=== PATIENT | female | born 1960 | race Two or more races ===

== ENCOUNTER 2025-02-25 12:10 | Inpatient (IN) | payer OTHER ==
[~2025-02-25] VITALS: Ht 165.1 cm; Wt 99.8 kg
[2025-02-25] MEDS ORDERED: DILAUDID8 MG (12:43)
[2025-02-25] MEDS ORDERED: PANTOPRAZO40 MG/50 M (12:44)
[2025-02-25] MEDS ORDERED: ROSUVASTATIN CA20 MG (12:45)
[2025-02-25] MEDS ORDERED: VRAYLAR3 MG (12:45)
[2025-02-25] MEDS ORDERED: MIRTAZAPINE30 M1 (12:45)
--- NOTE | 2025-02-25 12:47 | NUR ---
PACIENTE ALERTA Y ORIETADA X3 LA MISMA CON DOLOR ABDOMINAL, DIARREAS 13 Y NAUSIAS . S/V ESTABLE AL MOMENTO . PACIENTE EN VALENTIN CON BARANDAS ELEVADAS EN ESPERA DE EVALUACION MEDICA.
[2025-02-25] MEDS ORDERED: MORPHINE SULFATE 4 MG/ML VIAL IV ONE (13:45)
[2025-02-25] MEDS ORDERED: FAMOtidine 10 MG/ML (4ML VIAL) IV ONE (13:45)
[2025-02-25] MEDS ORDERED: 0.9 % SODIUM CHLORIDE 1,000 ML IV ONE (13:45)
[2025-02-25] MEDS ORDERED: FAMOTIDINE/PF 20 MG/2 ML VIAL ONE (13:47)
--- NOTE | 2025-02-25 13:55 | NUR ---
PACIENTE ORIENTADA POR RN RODRIGUES SOBRE TRATAMIENTO MEDICO EL CUAL INDICO ENTENDER. SE REALIZO EXTRACCION DE MUESTRAS Y CANALIZACION BAJO MEDIDAS ASEPTICAS. SE ADMINISTRAN MEDICAMENTO VITALY ORDEN MEDICA. PACIENTE PENDIENTE A ENTREGAR U/A Y CT ABDOMINO & PELVICO.
[2025-02-25] MEDS ORDERED: ONDANSETRON HCL 2 MG/ML VIAL IV ONE (14:00)
[2025-02-25 14:25] LABS: BASO % 0.2 % (0.1-1.2); EOS # 0.01 (0.04-0.54); EOS % 0.1 % (0.7-7.0); LYMPH # 1.24 (1.18-3.74); LYMPH % 10.2 % (19.3-53.1); MEAN PLATELET VOLUME 10.70 fl (9.4-12.4); MONO # 0.73 (0.24-0.82); MONO % 6.0 % (4.7-12.5); NEUT # 10.09 (1.56-6.13); NEUT % 83.1 % (34.0-71.1); RED CELL DISTRIBUTION WIDTH 13.5 % (11.6-14.4)
[2025-02-25 14:40] LABS: ALT/SGPT 24.0 U/L (12-78); AST/SGOT 14.0 U/L (15-37); BILIRUBIN TOTAL 0.72 mg/dL (0.3-1.2); BUN CREA RATIO 13.0 (7.0-25.0); CREATININE SERUM 0.61 mg/dL (0.55-1.02); GFR 99.06; GLOBULINA 4.2 G/DL (2.4-3.5); GLUCOSE FASTING 123.0 mg/dL (65-100); INR 1.04; OSMOLALITY SERUM 285.0 MOSM/KG (275-295)
[2025-02-25] MEDS ORDERED: KETOROLAC TROMETHAMINE 30 MG VIAL IV ONE ×2 (15:30→18:45)
[2025-02-25] MEDS ORDERED: KETOROLAC TROMETHAMINE 30 MG VIAL ONE ×2 (15:45→19:04)
[2025-02-25] MEDS ORDERED: CIPROFLOXACIN IN 5 % DEXTROSE 400 MG/200 ML PIGGYBAG IV ONE (15:45)
[2025-02-25] MEDS ORDERED: FAMOTIDINE/PF 20 MG in 0.9 % SODIUM CHLORIDE 8 ML IV PUSH SCH (21:44)
[2025-02-25] MEDS ORDERED: CIPROFLOXACIN IN 5 % DEXTROSE 200 ML IV SCH (21:44)
[2025-02-25] MEDS ORDERED: ACETAMINOPHEN 500 MG GEL..CAP PO PRN (21:45)
[2025-02-25] MEDS ORDERED: ONDANSETRON HCL 4 MG in 0.9 % SODIUM CHLORIDE 50 ML IV PRN (21:45)
[2025-02-25] MEDS ORDERED: MORPHINE SULFATE 4 MG/ML CARTRIDGE IV ONE (21:45)
[2025-02-25] MEDS ORDERED: MORPHINE SULFATE 4 MG/ML CARTRIDGE IV PRN (21:45)
[2025-02-25] MEDS ORDERED: 0.9 % SODIUM CHLORIDE 1,000 ML IV SCH (21:45)
[2025-02-26 02:20] LABS: URINE APPEARANCE Clear; URINE BILIRRUBIN Negative (NEGATIVE); URINE BLOOD Negative; URINE COLOR Yellow; URINE GLUCOSE Negative (NEGATIVE); URINE KETONE Negative (NEGATIVE); URINE LEUKOCYTE Negative; URINE NITRATE Negative; URINE PROTEIN 30 (NEGATIVE); URINE UROBILINOGEN 0.2 E.U./dl
[2025-02-26 02:21] LABS: URINE BACTERIA 1760.4 uL (0.0-1933); URINE EPITHELIAL CELLS 64.4 uL (0.0-38.8); URINE RBC 10.4 uL (0.0-20.8); URINE WBC 6.4 uL (0.0-23.2)
[2025-02-26 02:46] LABS: INR 1.05
[2025-02-26 03:18] LABS: TYPE CELLS SQUAMOUS; URINE CAST 0.00 uL (0.0-1.40)
[2025-02-26 03:33] VITALS: BP 110/65; O2SAT 95
[2025-02-26 08:00] VITALS: BP 135/78; O2SAT 96
[2025-02-26] MEDS ORDERED: ENOXAPARIN SODIUM 40 MG/0.4 ML SYRINGE SUBCUTANEO SCH (09:00)
[2025-02-26] MEDS ORDERED: KETOROLAC TROMETHAMINE 30 MG VIAL IV PRN (12:15)
[2025-02-26 16:14] VITALS: BP 132/73; O2SAT 96
[2025-02-27] VITALS: BP 109/70; O2SAT 98
[2025-02-27 08:00] VITALS: BP 157/89; O2SAT 96
[2025-02-27] MEDS ORDERED: METHADONE HCL10 MG (12:42)
[2025-02-27 13:31] LABS: BASO % 0.3 % (0.1-1.2); EOS # 0.19 (0.04-0.54); EOS % 1.8 % (0.7-7.0); LYMPH # 2.27 (1.18-3.74); LYMPH % 21.5 % (19.3-53.1); MEAN PLATELET VOLUME 11.70 fl (9.4-12.4); MONO # 0.79 (0.24-0.82); MONO % 7.5 % (4.7-12.5); NEUT # 7.22 (1.56-6.13); NEUT % 68.4 % (34.0-71.1); RED CELL DISTRIBUTION WIDTH 13.3 % (11.6-14.4)
[2025-02-27 14:10] LABS: ALT/SGPT 20.0 U/L (12-78); AST/SGOT 12.0 U/L (15-37); BILIRUBIN TOTAL 0.41 mg/dL (0.3-1.2); BUN CREA RATIO 10.0 (7.0-25.0); CREATININE SERUM 0.8 mg/dL (0.55-1.02); GFR 72.44; GLOBULINA 3.3 G/DL (2.4-3.5); GLUCOSE FASTING 160.0 mg/dL (65-100); OSMOLALITY SERUM 292.0 MOSM/KG (275-295)
[2025-02-27 16:00] VITALS: BP 158/80; O2SAT 99
[2025-02-27] MEDS ORDERED: LACTOBACILLUS ACIDOPHILUS 1 CAP CAP PO SCH (17:00)
[2025-02-27 23:50] VITALS: BP 160/80; O2SAT 98
[2025-02-28] MEDS ORDERED: MORPHINE SULFATE 4 MG/ML CARTRIDGE IV PRN ×3 (03:45→22:03)
[2025-02-28 08:00] VITALS: BP 152/88; O2SAT 96
[2025-02-28] MEDS ORDERED: OxyCODONE HCL ER 10MG TAB (OxyCONTIN) PO SCH (10:00)
[2025-02-28] MEDS ORDERED: MORPHINE SULFATE 2 MG/ML CARTRIDGE IV ONE (10:00)
[2025-02-28 16:14] VITALS: BP 143/73; O2SAT 97
[2025-02-28] MEDS ORDERED: MORPHINE SULFATE 4 MG/ML CARTRIDGE IV ONE (22:15)
[2025-03-01 01:17] VITALS: BP 156/78; O2SAT 97
[2025-03-01 05:14] VITALS: BP 140/80; O2SAT 98
[2025-03-01 11:18] VITALS: BP 155/56; O2SAT 98
[2025-03-01] MEDS ORDERED: DIATRIZOATE MEGLUMINE, SODIUM 30 ML BOTTLE PO NR (12:00)
[2025-03-01 13:28] LABS: ALT/SGPT 28.0 U/L (12-78); AST/SGOT 33.0 U/L (15-37); BILIRUBIN TOTAL 0.51 mg/dL (0.3-1.2); BUN CREA RATIO 11.0 (7.0-25.0); CREATININE SERUM 0.61 mg/dL (0.55-1.02); GFR 99.06; GLOBULINA 3.8 G/DL (2.4-3.5); GLUCOSE FASTING 107.0 mg/dL (65-100); OSMOLALITY SERUM 289.0 MOSM/KG (275-295)
[2025-03-01] MEDS ORDERED: DEXTROSE 5 % IN WATER 1,000 ML IV SCH (23:45)
[2025-03-02 00:55] VITALS: BP 156/74; O2SAT 97
[2025-03-02 07:04] LABS: BASO % 0.5 % (0.1-1.2); EOS # 0.31 (0.04-0.54); EOS % 3.0 % (0.7-7.0); LYMPH # 1.76 (1.18-3.74); LYMPH % 16.8 % (19.3-53.1); MEAN PLATELET VOLUME 11.60 fl (9.4-12.4); MONO # 0.86 (0.24-0.82); MONO % 8.2 % (4.7-12.5); NEUT # 7.49 (1.56-6.13); NEUT % 71.3 % (34.0-71.1); RED CELL DISTRIBUTION WIDTH 12.9 % (11.6-14.4)
[2025-03-02 07:42] LABS: ALT/SGPT 40.0 U/L (12-78); AST/SGOT 32.0 U/L (15-37); BILIRUBIN TOTAL 0.55 mg/dL (0.3-1.2); BUN CREA RATIO 10.0 (7.0-25.0); CREATININE SERUM 0.59 mg/dL (0.55-1.02); GFR 102.94; GLOBULINA 3.3 G/DL (2.4-3.5); GLUCOSE FASTING 129.0 mg/dL (65-100); OSMOLALITY SERUM 288.0 MOSM/KG (275-295)
[2025-03-02 08:00] VITALS: BP 147/92; O2SAT 96
[2025-03-02] MEDS ORDERED: POTASSIUM BICARBONATE/CIT AC 25 MEQ TABLET.EFF PO SCH (11:00)
[2025-03-02] MEDS ORDERED: POTASSIUM CHLORIDE 20MEQ/100ML H2O PB IV NR (11:00)
[2025-03-02 16:00] VITALS: BP 117/59; O2SAT 96
[2025-03-03] VITALS: BP 146/74
[2025-03-03 08:00] VITALS: BP 150/70; O2SAT 95
[2025-03-03] MEDS ORDERED: INTESTINEX680 M1 PO (12:44)
[2025-03-03] MEDS ORDERED: CIPRO500 MG PO (12:44)
[2025-03-03] MEDS ORDERED: METRONIDAZOLE500 MG PO (12:44)
[2025-03-03] MEDS ORDERED: TRAM1TAB98 PO (12:45)
[2025-03-03] MEDS ORDERED: PANTOPRAZOLE SO40 MG PO (12:45)
[2025-03-03] MEDS ORDERED: LEVSIN/SL0.125 MG SL (12:46)
== END 2025-03-03 22:42 | disposition home or self-care (01) | DRG 392 ==
LOC: ER 12:34 → SURG 22:25 → SEC-K 22:25 → SURG 02-26 00:34
PROVIDERS: General Practice; Internal Medicine Infectious Disease; ADMIT Internal Medicine; ATTEND Internal Medicine
PROC: BW21YZZ Computerized Tomography (CT Scan) of Abdomen and Pelvis using Other Contrast (ICD-10-PCS; 2025-02-25)
PROC: B020ZZZ Computerized Tomography (CT Scan) of Brain (ICD-10-PCS; principal; 2025-02-27)
PROC: BW21YZZ Computerized Tomography (CT Scan) of Abdomen and Pelvis using Other Contrast (ICD-10-PCS; 2025-03-01)
DX: K52.9 Noninfective gastroenteritis and colitis, unspecified (principal); D18.02 Hemangioma of intracranial structures; G89.4 Chronic pain syndrome; R20.2 Paresthesia of skin; H02.402 Unspecified ptosis of left eyelid; D72.829 Elevated white blood cell count, unspecified; E87.6 Hypokalemia; E78.5 Hyperlipidemia, unspecified; F17.210 Nicotine dependence, cigarettes, uncomplicated